=== PATIENT | male | born 1945 | race Caucasian/White ===

== ENCOUNTER → 2020-09-04 08:05 | Outpatient (BNVA) | payer OTHER, SELFPAY | PROVIDERS: Family Provider Emergency Medicine Emergency Medical Services; Referring Provider Emergency Medicine Emergency Medical Services; Visit Provider Specialist | DX: M19.042 Primary osteoarthritis, left hand (principal) | CPT/HCPCS: 73130 ==

== ENCOUNTER → 2020-09-19 15:04 | Outpatient (BNVA) | payer OTHER, SELFPAY | PROVIDERS: Family Provider Emergency Medicine Emergency Medical Services; Visit Provider Specialist | DX: Z20.822 Contact with and (suspected) exposure to COVID-19 (principal); Z11.52 Encounter for screening for COVID-19 | CPT/HCPCS: 87635 ==

== ENCOUNTER 2020-09-23 09:46 | Day surgery (SDC) | payer OTHER, SELFPAY ==
[2020-09-22 17:27] VITALS: BMI 25.8
[2020-09-23] VITALS (9 sets, daily range): BP systolic 80–141; BP diastolic 55–74; PULSE 59–77; RESP 12–18; TEMP 35.8–36.7; O2SAT 94–100
--- NOTE | 2020-09-23 10:08 | W.PM.OPSUD ---
Surgery/Procedure H&P Update DATE OF PROCEDURE: September 23, 2020 DATE H&P PERFORMED: 09/04/20 H&P UPDATE INFORMATION: I have reviewed H&P completed within last 30 days, I have examined patient prior to procedure, No changes to prior documentation and H&P is in [facility] EMR on date indicated PREOP DIAGNOSIS: Left ring finger triggering PLANNED PROCEDURE: Operation Date: 09/23/20 11:45 Proposed Procedures p left ring finger trigger finger release 92316 m65.30(Left) - Katarina Ramires MD Related Problem List Diagnoses (1) Acquired trigger finger of left ring finger:
[2020-09-23] MEDS: CELEcoxib 200 mg Capsule 400 MG PO (10:17)
[2020-09-23] MEDS: sodium chloride 0.9% 1,000 ML 30 ML IV (10:19)
[2020-09-23] MEDS: acetaminophen 1,000 MG/100 ML PIGGYBACK 400 MG IV (10:20)
--- NOTE | 2020-09-23 10:32 | ANES.PREANE2 ---
Pre-Anesthetic Assessment Pre-Anesthetic Assessment: Height/Weight: Height 1.68 m Weight 72.575 kg Temp Pulse Resp BP Pulse Ox 98.1 F 77 18 141/74 95 09/23/20 09:56 09/23/20 09:56 09/23/20 09:56 09/23/20 09:56 09/23/20 09:56 Preop Diagnosis: Left ring finger triggering Proposed Procedure: Operation Date: 09/23/20 11:45 Proposed Procedures p left ring finger trigger finger release 03307 m65.30(Left) - Katarina Ramires MD Was Beta Alexx taken within 24 hours: N/A Was Clonidine taken within 24 hours: N/A Last intake: Intake Last Liquid Date 09/22/20 Last Solid Date 09/22/20 Social: Social History: Tobacco (h/o smoking) and No alcohol Exam: Pre-Anes Outpt Exam: alert, oriented x 3 and regular rate & rhythm Airway: Submandibular: WNL Cervical ROM: WNL MP: 2 Dentition: False Pulmonary: Pulmonary: COPD CV/HEM: Comments: Lymphoma Anesthetic Plan: ASA status: 3 Anesthesia: MAC and Regional (specify below) (Fina prestonk) Risk of > 500 ml blood loss (7ml/kg in children): No Meds/Allergies Current Medications: Current Medications Generic Name Dose Route Start Last Admin Trade Name Freq PRN Reason Stop Dose Admin Sodium Chloride 1,000 mls @ 30 ml s/hr 09/23/20 10:00 09/23/20 10:19 Sodium Chloride 0.9% IV 09/24/20 09:59 30 mls/hr .Q24H CHARITO Administration PFSH Anesthesia PFSH: Social History Smoking and tobacco status: former smoker Data Anesthesia Cardiac Studies: No Data to Display
--- NOTE | 2020-09-23 12:29 | PM.OP ---
Operative Report Date of procedure: September 23, 2020 Pre-op Diagnosis: Left ring finger triggering Post-op diagnosis: same Procedure Done: Release left ring finger triggering Specimens removed/disposition: None Pathology: none sent Surgeon: Katarina Ramires Anesthesia: General (LMA) Estimated blood loss (mL): 0 Tourniquet time (min): 39 Tourniquet time: At 250 mmHg IV fluids (mL): 700 Urine output (mL): 0 Urine output: No Marte Complications: None Condition: stable Disposition: PACU (To same-day surgery for discharge to home) Brief History: This 75-year-old gentleman presented with complaints of triggering of his left ring finger. He wished to have release after discussion of treatment options. Risks and complications were discussed with him. Consents were signed preoperatively. Procedure: Patient was brought to the operating theater. He was placed on the operating room table. A Fina block was attempted, but secondary to poor IV access, he was transitioned to a general anesthetic per LMA. Patient tolerated it well. 2 g of Ancef was administered preoperatively. A tourniquet was placed high on the arm and was elevated for the [place] block, and it was maintained elevated as general anesthetic was administered. This followed exsanguination of the arm. Tourniquet time was 39 minutes. Surgical pause was performed prior to commencement of the surgical procedure. At the time of the surgical pause we identified the site and side of surgery. We also identified the patient's identity and appropriate administration of IV antibiotics. Following the surgical pause, an incision was made along the distal palmar crease beneath the ring finger. Dissection continued through the skin to the subcutaneous tissues using a scalpel. Blunt dissection was then utilized to spread soft tissues and allow access to the A1 mariana. It was then incised longitudinally and sharply using a knife. This was accomplished without difficulty and atraumatically. Once the A1 mariana was released, tendons were brought up out of the wound and evaluated. There were no gross masses on the tendons. Tendons were returned to normal position. We then irrigated the wound and subsequently closed it with 3-0 nylon with an interrupted mattress type suture. Following closure of the wound, the wound was injected with bupivacaine plain into the subcutaneous tissues as a local anesthetic. Sterile dressing was then placed consisting of OpSite, fluffed fluffs, sterile soft roll, and an Tod wrap. The patient was returned to recovery in satisfactory condition. He will be discharged home to follow-up with me in the office. There were no complications and no specimens. Associated Problem List Diagnoses (1) Acquired trigger finger of left ring finger:
--- NOTE | 2020-09-23 17:15 | ANE.PACU2 ---
Inpatient post-anesthesia follow up: Airway intact: Yes Vital signs: Temperature 96.6 F Pulse Rate 59 Respiratory Rate 18 Blood Pressure 100/55 Pulse Oximetry 94 Oxygen Delivery Me thod Room Air Oxygen Flow Rate 6 Fraction of Inspir ed Oxygen Hydration adequate: Yes Nausea and vomiting: No Pain level: 1 Mental status: Baseline
== END 2020-09-23 12:56 | disposition home or self-care (01) ==
PROVIDERS: Visit Provider Specialist
PROC: (CPT 26055; principal; 2020-09-23 11:35)
DX: M65.342 Trigger finger, left ring finger (principal); J44.9 Chronic obstructive pulmonary disease, unspecified; Z87.891 Personal history of nicotine dependence
CPT/HCPCS: 26055; 81025; 96365; J0690; J1170; J2250; J2370; J2704; J3490; J7030; T1015-U1

== ENCOUNTER 2021-10-22 08:48 | Oncology outpatient (recurring) (ONCR) | payer OTHER, SELFPAY | END 2021-11-03 23:59 | disposition home or self-care (01) | PROVIDERS: PCP Emergency Medicine Emergency Medical Services; Visit Provider Internal Medicine Hematology & Oncology | DX: C82.10 Follicular lymphoma grade II, unspecified site (principal); K83.1 Obstruction of bile duct; R53.1 Weakness; R53.83 Other fatigue; Z92.21 Personal history of antineoplastic chemotherapy; Z92.3 Personal history of irradiation | CPT/HCPCS: 96523; 99204; 99999 ==

== ENCOUNTER 2021-11-24 13:48 | Oncology outpatient (recurring) (ONCR) | payer OTHER, SELFPAY | END 2021-12-03 23:59 | disposition home or self-care (01) | PROVIDERS: PCP Emergency Medicine Emergency Medical Services; Visit Provider Internal Medicine Hematology & Oncology | DX: Z45.2 Encounter for adjustment and management of vascular access device (principal) | CPT/HCPCS: 96523 ==

== ENCOUNTER 2022-03-29 08:14 | Oncology outpatient (recurring) (ONCR) | payer OTHER, SELFPAY ==
[2022-03-29] MEDS: iohexol 350 mg/mL 100 mL Btl PO (09:45)
[2022-03-29 10:05] LABS: Basophils # 0.1 10^3/uL (0.0-0.1); Basophils % 0.5 %; Eosinophils # 0.4 10^3/uL (0.0-0.8); Hemoglobin 11.8 g/dL (11.7-16.6); Lymphocytes # 2.4 10^3/uL (0.8-4.8); Lymphocytes % 23.7 %; Mean Corpuscular HGB Conc 31.9 g/dL (30.0-36.0); Mean Corpuscular Volume 94.1 fl (80-94); Mean Platelet Volume 9.2 fL (7.4-10.4); Monocytes # 0.9 10^3/uL (0.2-0.9); Monocytes % 9.3 %; Neutrophils # 6.28 10^3/uL (1.8-7.7); Nucleated Red Blood Cells % 0 %; Platelet Count 272 10^3/cmm (130-400); Red Blood Count 3.93 10^6/uL (4.1-5.3); Red Cell Distribution Width 15.2 % (12.1-15.1); White Blood Count 10.1 10^3/uL (4.0-10.0)
[2022-03-29 10:36] LABS: Alanine Aminotransferase 13 U/L (0-41); Albumin Level 3.9 g/dL (3.5-5.2); Alkaline Phosphatase 143 U/L (40-130); Anion Gap 15.5 (5-19); Aspartate Amino Transferase 22 U/L (0-40); Blood Urea Nitrogen 14 mg/dL (8-23); Calcium 9.4 mg/dL (8.5-10.5); Carbon Dioxide 28 mmol/L (22-29); Chloride 101 mmol/L (98-107); Globulin 3.1 g/dL (1.3-4.6); Glucose 94 mg/dL (65-115); Lactate Dehydrogenase 381 U/L (135-225); Osmolality Calculated 290 mOsm/kg (285-295); Potassium 4.5 mmol/L (3.5-5.1); Sodium 140 mmol/L (136-145); Total Bilirubin 0.3 mg/dL (0.15-1.2)
[2022-03-29] MEDS: iohexol 350 mg/mL 100 mL Btl IV (11:16)
--- NOTE | 2022-03-29 12:00 | CT_ITS ---
WS: [id number] CT CHEST, ABDOMEN AND PELVIS WITH CONTRAST HISTORY: Lymphoma. TECHNIQUE: Contiguous 5 mm axial imaging performed through the chest, abdomen and pelvis with IV cont rast, oral contrast has been provided. Coronal and sagittal reformats chest. Coronal and sagittal ref ormats through the abdomen and pelvis. All CT scans at [facility] use at least one of these d ose optimization techniques: automated exposure control; mA and/or kV adjustment per patient size (in cludes targeted exams where dose is matched to clinical indication); or iterative reconstruction. CONTRAST: Omnipaque 350; 95 mL IV. DLP: 1618.55 mGy.cm COMPARISON: PET/CT 10/30/[address]: Lung volumes are slightly decreased. Subsegmental atelectasis at the LEFT lung base with sl ight elevation of the LEFT hemidiaphragm. There is mild peripheral interstitial thickening. No nodule s or mass. Mild atherosclerosis aorta with no aneurysm. Normal size pulmonary artery. Heart size is n ormal. No mediastinal or hilar adenopathy. Largest lymph node at the RIGHT hilum measures 9 mm. Small hiatal hernia. Mild straightening of the normal thoracic kyphosis. Minimal loss of height of T11. Nu merous rib deformities on the RIGHT from prior trauma with healing. Suspect prior fracture in the man ubrium with healing also. Abdomen CT: Liver and spleen are negative. No portal vein thrombus. Gallbladder is not identified and may be contracted or surgically absent. Pancreas and adrenal glands are negative. No renal obstructi on. Moderate atherosclerotic plaque abdominal aorta. There is no aneurysm. Well-distended stomach. No small bowel obstruction. Marked fecal retention within the distal colon. A ppendix is normal. Mild soft tissue thickening centered in the central mesentery. This was the site of previously noted enlarged lymph nodes. Very similar to the prior PET/CT from 2019. No definite recurrence. This may be residual treated disease. No retroperitoneal or additional mesenteric lymph nodes. Pelvic CT: Nondistended bladder with mild diffuse bladder wall thickening. No free fluid or adenopath y in the pelvis. Mild soft tissue thickening along the RIGHT inguinal canal may be some fluid. No nancy nge since 2019. Straightening of the normal lumbar lordosis. Moderate degenerative disc disease. Prior RIGHT hip arth roplasty. CT/CT chest abd pel w con* IMPRESSION: 1. No evidence for recurrent lymphadenopathy throughout the chest, abdomen or pelvis. 2. Residual very minimal soft tissue thickening in the central mesentery at th e site of prior enlarged lymph nodes. This may be treated disease. No obvious p rogression since 2019. 3. Marked fecal retention distal colon. 4. Advanced degenerative changes in thoracic and lumbar spine
== END 2022-04-05 23:59 | disposition home or self-care (01) ==
LOC: ONCMED 08:16 → RAD 09:29 → ONCMED 04-05 13:52
PROVIDERS: PCP Emergency Medicine Emergency Medical Services; Visit Provider Internal Medicine Hematology & Oncology
DX: C85.90 Non-Hodgkin lymphoma, unspecified, unspecified site (principal)
CPT/HCPCS: 71260; 74177; 80053; 83615; 85025

== ENCOUNTER 2022-04-14 12:37 | Oncology outpatient (recurring) (ONCR) | payer OTHER, SELFPAY ==
[2022-04-14 13:06] LABS: Basophils % 0.4 %; Eosinophils # 0.5 10^3/uL (0.0-0.8); Eosinophils % 4.9 %; Hematocrit 34.8 % (42.0-52.0); Hemoglobin 11.2 g/dL (11.7-16.6); Lymphocytes # 2.6 10^3/uL (0.8-4.8); Lymphocytes % 23.7 %; Mean Corpuscular HGB Conc 32.2 g/dL (30.0-36.0); Mean Corpuscular Hemoglobin 29.6 pg (28.0-34.0); Mean Corpuscular Volume 91.8 fl (80-94); Monocytes # 0.9 10^3/uL (0.2-0.9); Neutrophils # 6.72 10^3/uL (1.8-7.7); Neutrophils % 62.5 %; Nucleated Red Blood Cells % 0 %; Platelet Count 299 10^3/cmm (130-400); Red Blood Count 3.79 10^6/uL (4.1-5.3); Red Cell Distribution Width 15.2 % (12.1-15.1); White Blood Count 10.8 10^3/uL (4.0-10.0)
[2022-04-14 13:29] LABS: Alanine Aminotransferase 12 U/L (0-41); Albumin Level 3.5 g/dL (3.5-5.2); Alkaline Phosphatase 112 U/L (40-130); Anion Gap 12.8 (5-19); Aspartate Amino Transferase 15 U/L (0-40); Blood Urea Nitrogen 16 mg/dL (8-23); Calcium 8.9 mg/dL (8.5-10.5); Carbon Dioxide 29 mmol/L (22-29); Chloride 98 mmol/L (98-107); Glucose 159 mg/dL (65-115); Lactate Dehydrogenase 206 U/L (135-225); Osmolality Calculated 287 mOsm/kg (285-295); Potassium 3.8 mmol/L (3.5-5.1); Sodium 136 mmol/L (136-145); Total Bilirubin 0.2 mg/dL (0.15-1.2); Total Protein 6.5 g/dL (6.6-8.7)
== END 2022-05-05 23:59 | disposition home or self-care (01) ==
PROVIDERS: PCP Emergency Medicine Emergency Medical Services; Visit Provider Internal Medicine Hematology & Oncology
DX: C82.49 Follicular lymphoma grade IIIb, extranodal and solid organ sites (principal); K83.1 Obstruction of bile duct; Z92.21 Personal history of antineoplastic chemotherapy; Z92.3 Personal history of irradiation; Z87.891 Personal history of nicotine dependence
CPT/HCPCS: 36591; 80053; 83615; 85025; 99214

== ENCOUNTER 2022-06-09 10:48 | Oncology outpatient (recurring) (ONCR) | payer OTHER, SELFPAY | END 2022-07-06 23:59 | disposition home or self-care (01) | PROVIDERS: PCP Emergency Medicine Emergency Medical Services; Visit Provider Internal Medicine Hematology & Oncology | DX: Z45.2 Encounter for adjustment and management of vascular access device (principal); Z95.828 Presence of other vascular implants and grafts | CPT/HCPCS: 96523 ==

== ENCOUNTER 2022-09-02 12:40 | Oncology outpatient (recurring) (ONCR) | payer OTHER, SELFPAY ==
[2022-09-02 13:13] VITALS: BP 103/63; PULSE 88; RESP 18; TEMP 37.1; O2SAT 97
== END 2022-09-03 23:59 | disposition home or self-care (01) ==
LOC: ONCMED 12:41
PROVIDERS: PCP Emergency Medicine Emergency Medical Services; Visit Provider Internal Medicine Hematology & Oncology
DX: Z45.2 Encounter for adjustment and management of vascular access device; Z95.828 Presence of other vascular implants and grafts
CPT/HCPCS: 96523

== ENCOUNTER 2022-10-14 12:08 | Oncology outpatient (recurring) (ONCR) | payer OTHER, SELFPAY ==
[2022-10-14 13:16] LABS: Basophils % 0.4 %; Eosinophils # 0.3 10^3/uL (0.0-0.8); Eosinophils % 3.4 %; Hematocrit 35.2 % (42.0-52.0); Hemoglobin 11.3 g/dL (11.7-16.6); Mean Corpuscular HGB Conc 32.1 g/dL (30.0-36.0); Mean Corpuscular Hemoglobin 29.7 pg (28.0-34.0); Mean Corpuscular Volume 92.4 fl (80-94); Mean Platelet Volume 9.1 fL (7.4-10.4); Monocytes # 0.8 10^3/uL (0.2-0.9); Monocytes % 8.3 %; Neutrophils # 6.08 10^3/uL (1.8-7.7); Neutrophils % 65.5 %; Nucleated Red Blood Cells % 0 %; Platelet Count 249 10^3/cmm (130-400); Red Blood Count 3.81 10^6/uL (4.1-5.3); Red Cell Distribution Width 14.8 % (12.1-15.1); White Blood Count 9.3 10^3/uL (4.0-10.0)
[2022-10-14 13:42] LABS: Alanine Aminotransferase 24 U/L (0-41); Albumin Level 3.8 g/dL (3.5-5.2); Alkaline Phosphatase 81 U/L (40-130); Anion Gap 12.1 (5-19); Aspartate Amino Transferase 21 U/L (0-40); Blood Urea Nitrogen 16 mg/dL (8-23); Calcium 8.7 mg/dL (8.5-10.5); Carbon Dioxide 28 mmol/L (22-29); Chloride 101 mmol/L (98-107); Globulin 2.7 g/dL (1.3-4.6); Glucose 92 mg/dL (65-115); Lactate Dehydrogenase 219 U/L (135-225); Osmolality Calculated 285 mOsm/kg (285-295); Potassium 4.1 mmol/L (3.5-5.1); Sodium 137 mmol/L (136-145); Total Bilirubin 0.2 mg/dL (0.15-1.2); Total Protein 6.5 g/dL (6.6-8.7)
[2022-10-14 14:58] LABS: Ferritin 99 ng/mL (30-400); Iron 46 ug/dL (59-158); Percent Saturation 17.5 % (20-50); Total Iron Binding Capacity 262 mcg/dl; Unsaturated Iron Binding 216 ug/dL (112-347)
[2022-10-14 15:13] LABS: Vitamin B12 485 pg/mL (232-1245)
== END 2022-11-03 23:59 | disposition home or self-care (01) ==
PROVIDERS: PCP Emergency Medicine Emergency Medical Services; Visit Provider Internal Medicine Hematology & Oncology
DX: C82.49 Follicular lymphoma grade IIIb, extranodal and solid organ sites (principal); K83.1 Obstruction of bile duct; Z92.21 Personal history of antineoplastic chemotherapy; Z92.3 Personal history of irradiation; Z87.891 Personal history of nicotine dependence; D64.9 Anemia, unspecified; Z95.828 Presence of other vascular implants and grafts
CPT/HCPCS: 36591; 80053; 82607; 82728; 83540; 83550; 83615; 85025; 99214

== ENCOUNTER → 2022-10-21 10:30 | Outpatient (BNVA) | payer OTHER, SELFPAY | PROVIDERS: PCP Emergency Medicine Emergency Medical Services; Visit Provider Internal Medicine Cardiovascular Disease | DX: M79.89 Other specified soft tissue disorders (principal); I10 Essential (primary) hypertension; I73.9 Peripheral vascular disease, unspecified; Z87.891 Personal history of nicotine dependence | CPT/HCPCS: 93005; 99204 ==

== ENCOUNTER 2022-11-16 09:47 | Outpatient (CLI) | payer OTHER, SELFPAY ==
--- NOTE | 2022-11-16 10:00 | USCV_ITS ---
Evelio Irwin Age: 77 Gender: M : 1945 Exam Date: 11/16/2022 10:17 Ordering Phys: Kolby Khan MD ([email or web address]) Technologist: Exam Location: [facility] Indication: lt leg pain PROCEDURES: Venous duplex imaging was performed in only the left lower extremity. The following venous structures were evaluated: common femoral vein, profunda vein, proximal portion of the greater saphenous vein, superficial femoral vein, and the popliteal vein. In addition, the posterior tibial and peroneal trunk were evaluated. FINDINGS: Normal 2-D Doppler and augmentation and compressibility throughout the lower extremity venous structures. Additional imaging through the proximal calf veins also reveals no thrombus. Limited evaluation of the greater saphenous vein is patent with no thrombus. CONCLUSIONS No DVT left lower extremity. Dr. Tootie Freeman DO (Electronically Signed) Final Date: 17 November 2022 07:35 S
== END 2022-11-16 09:48 | disposition home or self-care (01) ==
LOC: RAD 09:48
PROVIDERS: PCP Emergency Medicine Emergency Medical Services; Visit Provider Internal Medicine Cardiovascular Disease
DX: M79.89 Other specified soft tissue disorders (principal)
CPT/HCPCS: 93005; 93971; 99204

== ENCOUNTER 2022-11-18 14:08 | Oncology outpatient (recurring) (ONCR) | payer OTHER, SELFPAY | END 2022-12-03 23:59 | disposition home or self-care (01) | LOC: ONCMED 14:09 | PROVIDERS: PCP Emergency Medicine Emergency Medical Services; Visit Provider Internal Medicine Hematology & Oncology | DX: Z45.2 Encounter for adjustment and management of vascular access device (principal) | CPT/HCPCS: 96523; J1642 ==

== ENCOUNTER → 2022-12-13 09:34 | Outpatient (BNVA) | payer OTHER, SELFPAY | PROVIDERS: PCP Emergency Medicine Emergency Medical Services; Visit Provider Nurse Practitioner Family | DX: I10 Essential (primary) hypertension (principal); I73.9 Peripheral vascular disease, unspecified; Z87.891 Personal history of nicotine dependence | CPT/HCPCS: 99214 ==

== ENCOUNTER 2023-01-31 15:26 | Oncology outpatient (recurring) (ONCR) | payer OTHER, SELFPAY ==
--- OUTSIDE RECORDS SUMMARY | 2023-01-31 15:25 | XMS_ITS | Patient Health Record ---
Author Name Unknown Organization [facility] Address [address] [place] [address] Care Team Providers Care Invisible Braces Orthodontist Name Role Phone Chaitanya Ban Primary Care Provider Unavailabl e Crow Michel Unavailable [phone] [place], [place] Unavailable Unavailable ALLERGIES No Known Allergies RESULTS Component Value Reference Range Notes CBC Reflex Man Diff 66923, 8 5007 Reviewed date:03/01/2022 01:02:07 PM Interpretation: Performing Lab: Notes/Report: Instr WBC WBC RBC Hgb Hct MCV MCH MCHC Platelet RDW-SD RDW-CV MPV Review X Comprehensive Metabolic Pane l 80216 Reviewed date:03/01/2022 01:02:14 PM Interpretation: Performing Lab: Notes/Report: Sodium Potassium Chloride CO2 Glucose Serum BUN Creat Anion Gap BUN/Creat Ratio Total Protein Albumin Calcium Alk Phos Globulin Alb/Glob AST/SGOT Bili Total ALT/SGPT X GFR Osmo Serum,Measured REASON FOR REFERRAL No Information MEDICATIONS Medication SIG (Take, Route, Frequency, Duration) Notes Start Date End Date Status Mirapex 1 MG 1 tablet Orally bid Active Albuterol Sulfate HFA 108 (90 Base) MCG/ACT 2 puffs as needed Inhalation every 6 hrs rare PRN Active Albuterol Sulfate (2.5 MG/3ML) 0.083% 3 ml as needed Inhalation QID as needed for SOB/Wheeze rare PRN Active IMMUNIZATIONS Vaccine Route Administration Date Status Comme nts Influenza (whole), CPT 98606 Inactive Unknown 03/07/2017 Administered Influenza (whole), CPT 22594 Inactive Unknown 04/11/2018 Administered Influenza, high dose seasonal Unknown 11/07/2019 Refuse d Influenza, seasonal, injecta ble, preservative free, 3 yrs and above Unknown 07/20/2019 Administered Pneumococcal polysaccharide PPV23 Unknown 07/20/2018 Ad ministered Pneumovax 23 Unknown 03/07/2017 Administered SOCIAL HISTORY Tobacco Use: Social History Observation Description Date Details (start date - stop date) Former Smoker NA - NA Sex Assigned At : Social History Observation Description Sex Assigned At Unknown Tobacco Use/Smoking Question Answer Notes Are you a former smoker How long has it been since you last smoked? > 10 years Alcohol Screen (Audit-C) Question Answer Notes Did you have a drink containing alcohol in the p ast year? No Points 0 Interpretation Negative PHQ-9 Question Answer Notes Little interest or pleasure in doing things Not at all Feeling down, depressed, or hopeless Not at all Trouble falling or staying asleep, or sleeping t oo much Not at all Feeling tired or having little energy Not at all Poor appetite or overeating Not at all Feeling bad about yourself, or that you are a failure, or have let yourself or your family down Not at all Trouble concentrating on thi ngs, such as reading the newspaper or watching television Not at all Moving or speaking so slowly that other people could have noticed. Or the opposite ? 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) Active confirmed 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 (87149007) Problem Chronic obstructive pulmonary disease, unspecified (J44.9) Active confirmed Chronic obstructive pulmonary disease (18538059) Problem Lymphoma, non-Hodgkin's (C85.90) Active confirmed Non-Hodgkin lymphoma (152367105) Problem Chronic cough (R05) Active confirmed 78916878 Problem Abnormal PFT (R94.2) Active confirmed 533566941 Problem History of follicular lymphoma (Z85.72) Active confirmed Problem Follicular lymphoma of spleen, 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 confirmed 565016575 Problem 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) Active confirmed 101554676 Encounters Encounter Location Date Provider Diagnosis [address] [facility] [place] [address] 03/01/2022 Crow Michel PLAN OF TREATMENT Pending Test Test Name Order Date PETCT 10/30/2019 Comprehensive Metabolic Panel [id number] 090 06/2019 CBC Reflex Man Diff 50253, 32809 020 Port Flush 11/18/2020 Future Test Test Name Order Date Port Flush 10/26/2019 Comprehensive Metabolic Panel 06096 090 08/2019 CBC Reflex Man Diff 07163, 70046 020 Comprehensive Metabolic Panel 53815 11/04 CBC Reflex Man Diff 49247, 90915 021 Insurance Providers Payer Name Payer Address Payer Phone Subscriber Number Group Number Insured Name Patient Relationship to Insured Coverage Start Date Coverage End Date [employer] [address] [place] [phone] [id number] Irwin Fraser Self - patient is the insured MEDICAL (GENERAL) HISTORY Medical History History ICD Code Problem:Allergic rhinitis (disorder) , S tatus :: Active Problem:Arthritis (disorder) , Status :: Active Problem:Cataract (disorder) , Status :: Active Problem:Chronic cough (finding) , Status :: Active Problem:Follicular non-Hodgkin's lymphom a (disorder) , Status :: Active Problem:Imaging of thorax abnormal (find ing) , Status :: Active Problem:Immunoglobulin deficiency (disor camilla) , Status :: Active Problem:Paraseptal emphysema (disorder) , Status :: Active Problem:Pulmonary emphysema (disorder) , Status :: Active 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) , Status :: Active Problem:Arthritis (disorder) , Status :: Active Problem:Cataract (disorder) , Status :: Active Problem:Dehydration (disorder) , Status :: Active Problem:Follicular non-Hodgkin's lymphom a (disorder) , Status :: Active Problem:Hypocalcemia (disorder) , Status :: Active Problem:Hypogammaglobulinemia (finding) , Status :: Active Problem:Jaundice (finding) , Status :: A ctive Problem:Malignant lymphoma (disorder) , Status :: Active Problem:Polyarthropathy (disorder) , Sta tus :: Active Problem:Pulmonary emphysema (disorder) , Status :: Active measles pneumonia anemia hemorrhoids bronchitis cataracts Surgical History Surgery Date(Month/Year) right hip replacement Hospitalization History Reason Date(Month/Year) surgical pneumonia 07/2019
[2023-01-31 15:27] VITALS: BP 121/72; PULSE 87; RESP 18; TEMP 37; O2SAT 94
== END 2023-02-03 23:59 | disposition home or self-care (01) ==
PROVIDERS: PCP Emergency Medicine Emergency Medical Services; Visit Provider Internal Medicine Hematology & Oncology
DX: Z45.2 Encounter for adjustment and management of vascular access device (principal)
CPT/HCPCS: 96523; J1642

== ENCOUNTER 2023-03-04 10:40 | Oncology outpatient (recurring) (ONCR) | payer OTHER, SELFPAY ==
[2023-03-04 10:46] VITALS: BP 145/76; PULSE 88; RESP 17; TEMP 36.1; O2SAT 95
== END 2023-03-05 23:59 | disposition home or self-care (01) ==
PROVIDERS: PCP Emergency Medicine Emergency Medical Services; Visit Provider Internal Medicine Hematology & Oncology
DX: Z45.2 Encounter for adjustment and management of vascular access device (principal)
CPT/HCPCS: 96523; J1642

== ENCOUNTER 2023-04-05 14:31 | Oncology outpatient (recurring) (ONCR) | payer OTHER, SELFPAY ==
--- OUTSIDE RECORDS SUMMARY | 2023-04-05 14:33 | XMS_ITS | Patient Health Record ---
Author Name Unknown Organization [facility] Address [address] [place] [address] Care Team Providers Care Ammonia Box Tender Name Role Phone Ban Tavares Primary Care Provider Neftali Ross Unavailable [phone] [place], [place] Unavailable Unavailable ALLERGIES No Known Allergies REASON FOR REFERRAL Reason Peripheral vascular disease Diagnosis 1 Peripheral vascular disease (I73.9) Referring Provider First Name Ban Referring Provider Last Name Chaitanya Referred Organization [facility] Referred Provider Neftali Berman Referred Address [address],[place],[address],[place] Referred Provider Specialty Cardiology Referral Priority Routine MEDICATIONS Medication SIG (Take, Route, Frequency, Duration) [...] Date Status Comme nts Influenza (whole), CPT 14466 Inactive Unknown 03/07/2017 Administered Influenza (whole), CPT 88344 Inactive Unknown 04/11/2018 Administered Influenza, high dose [...] lymphoma of lymph nodes of multiple sites (79395279) Problem Chronic obstructive pulmonary disease, unspecified (J44.9) Active confirmed Chronic obstructive pulmonary disease (44905184) Problem Lymphoma, non-Hodgkin's (C85.90) Active confirmed Non-Hodgkin lymphoma (989063275) Problem Chronic cough (R05) Active confirmed 57445272 Problem Peripheral vascular disease (I73.9) Active confirmed 191033694 Problem Abnormal PFT (R94.2) Active confirmed 217278584 Problem History of follicular lymphoma (Z85.72) Active confirmed Problem Follicular lymphoma of spleen, 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 confirmed 968096596 Problem 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) Active confirmed 677718817 PLAN OF TREATMENT Pending Test Test Name Order Date PETCT 10/30/2019 Comprehensive Metabolic Panel [id number] 0 06/2019 CBC Reflex Man Diff 88195, 65900 020 Port Flush 11/18/2020 Future Test Test Name Order Date Port Flush 10/26/2019 Comprehensive Metabolic Panel 09730 09/0 08/2019 CBC Reflex Man Diff 85050, 10944 020 Comprehensive Metabolic Panel 94341 11/04 CBC Reflex Man Diff 06297, 94084 021 Next Appt Details Provider Name:Neftali Berman , 06/09/2023 10:45:00 AM, [address] [place] [address], [address], Insurance Providers Payer Name Payer Address Payer Phone Subscriber Number Group Number Insured Name Patient Relationship to Insured Coverage Start Date Coverage End Date [employer] [address] [place] [phone] [id number] Irwin Fraser Self - patient is the [...]
[2023-04-05 14:40] VITALS: BP 134/81; PULSE 64; RESP 18; TEMP 36.6; O2SAT 99
== END 2023-04-05 23:59 | disposition home or self-care (01) ==
LOC: ONCMED 14:31
PROVIDERS: PCP Emergency Medicine Emergency Medical Services; Visit Provider Internal Medicine Hematology & Oncology
DX: Z45.2 Encounter for adjustment and management of vascular access device (principal)
CPT/HCPCS: 36415; J1642

== ENCOUNTER 2023-04-15 09:28 | Outpatient (CLI) | payer OTHER, SELFPAY ==
[2023-04-15] MEDS: iohexol 350 mg/mL 500 mL Btl (per mL) IV (09:46)
[2023-04-15] MEDS: iohexol 350 mg/mL 500 mL Btl (per mL) PO (09:46)
--- NOTE | 2023-04-15 11:00 | CTR_ITS ---
PROCEDURE INFORMATION: Exam: CT Chest With Contrast; Diagnostic Exam date and time: 04/15/2023 11:30 AM Age: 78 years old Clinical indication: Condition or disease; Other: Follow up non hodgkin lymphoma; Additional info: Follow up, to be completed in six months, just prior to next oncology TECHNIQUE: Imaging protocol: Diagnostic computed tomography of the chest with contrast. Radiation optimization: All CT scans at this facility use at least one of these dose optimization techniques: automated exposure control; mA and/or kV adjustment per patient size (includes targeted exams where dose is matched to clinical indication); or iterative reconstruction. Contrast material: OMNI 350; Contrast volume: 95 ml; Contrast route: INTRAVENOUS (IV); REPORTING DATA: Count of CT and Cardiac NM exams in prior 12 months: This patient has received 0 known CTs and 0 known cardiac nuclear medicine studies in the 12 months prior to the current study. COMPARISON: CT chest abdpel w/*[id number] 03/29/2022 11:09 AM RADIATION DOSE METRICS: Total DLP (mGy-cm): 906.86 FINDINGS: Lungs: Mild upper lung predominant emphysematous changes. Mild left basilar subsegmental atelectasis. Mild right dependent atelectasis. No consolidation. No mass. Left lower lobe calcified granuloma. Pleural spaces: Unremarkable. No pneumothorax. No pleural effusion. Heart: Unremarkable. No cardiomegaly. No pericardial effusion. Coronary arteries: Mild coronary artery calcification. Lymph nodes: No suspicious lymphadenopathy. Stable small mediastinal calcification in keeping with sequela of old granulomatous disease. Stable right hilar lymph node measures 9 mm. Vasculature: Mild systemic atherosclerotic calcification without aortic aneurysm. Diaphragm: Stable asymmetric elevation of the left hemidiaphragm. Bones/joints: No acute fracture. No aggressive osteolytic or blastic lesion. Multiple chronic right rib fracture deformities. Degenerative changes along the spine and shoulders. Soft tissues: Unremarkable. PROCEDURE INFORMATION: Exam: CT Abdomen And Pelvis With Contrast Exam date and time: 04/15/2023 11:30 AM Age: 78 years old Clinical indication: Condition or disease; Other: Follow up non hodgkin lymphoma; Additional info: Follow up, to be completed in six months, just prior to next oncology TECHNIQUE: Imaging protocol: Computed tomography of the abdomen and pelvis with contrast. Radiation optimization: All CT scans at this facility use at least one of these dose optimization techniques: automated exposure control; mA and/or kV adjustment per patient size (includes targeted exams where dose is matched to clinical indication); or iterative reconstruction. Contrast material: OMNI 350; Contrast volume: 95 ml; Contrast route: INTRAVENOUS (IV); REPORTING DATA: Count of CT and Cardiac NM exams in prior 12 months: This patient has received 0 known CTs and 0 known cardiac nuclear medicine studies in the 12 months prior to the current study. COMPARISON: CT chest abdpel w/*[id number] 03/29/2022 11:09 AM RADIATION DOSE METRICS: Total DLP (mGy-cm): 906.86 FINDINGS: Liver: Normal. No mass. Gallbladder and bile ducts: Suspect prior cholecystectomy without biliary ductal dilatation. Pancreas: Normal. No ductal dilation. Spleen: Normal. No splenomegaly. Adrenal glands: Normal. No mass. Kidneys and ureters: Normal. No hydronephrosis. Stomach and bowel: Unremarkable. No obstruction. No mucosal thickening. Appendix: Normal. Intraperitoneal space: Unremarkable. No free air. No significant fluid collection. Vasculature: Moderate systemic atherosclerotic calcification without abdominal aortic aneurysm. Lymph nodes: No suspicious lymphadenopathy. Stable subtle jejunal mesenteric graying. Urinary bladder: Unremarkable as visualized. Reproductive: Unremarkable as visualized. Bones/joints: No acute fracture. No aggressive osteolytic or blastic lesion. Chronic right pelvic fractures and total hip arthroplasty. Degenerative changes along the spine. Soft tissues: Small fat containing umbilical hernia. CT/CT chest abdpel w/*[id number] IMPRESSION: No evidence of recurrent disease to the chest. IMPRESSION: 1. No evidence of progressive disease or recurrent lymphadenopathy. 2. Stable subtle mesenteric graying.
[2023-04-15 11:44] LABS: Blood Urea Nitrogen 21 mg/dL (8-23)
== END 2023-04-15 09:29 | disposition home or self-care (01) ==
LOC: RAD 09:28
PROVIDERS: PCP Emergency Medicine Emergency Medical Services; Visit Provider Internal Medicine Medical Oncology
DX: C82.90 Follicular lymphoma, unspecified, unspecified site (principal)
CPT/HCPCS: 71260; 74177; 82565; 84520; Q9967

== ENCOUNTER 2023-04-18 11:55 | Oncology outpatient (recurring) (ONCR) | payer OTHER, SELFPAY ==
[2023-04-18 12:15] VITALS: BP 125/69; PULSE 88; RESP 16; TEMP 36.8; O2SAT 94
[2023-04-18 12:33] LABS: Basophils % 0.3 %; Eosinophils # 0.3 10^3/uL (0.0-0.8); Eosinophils % 2.6 %; Hematocrit 34.4 % (37-53); Lymphocytes % 20.8 %; Mean Corpuscular HGB Conc 33.1 g/dL (30-55); Mean Corpuscular Hemoglobin 30.3 pg (27-33); Mean Corpuscular Volume 91.5 fl (82-101); Mean Platelet Volume 8.8 fL (7.4-10.4); Monocytes # 0.8 10^3/uL (0.2-0.9); Monocytes % 8.6 %; Neutrophils # 6.38 10^3/uL (1.8-7.7); Neutrophils % 67.4 %; Nucleated Red Blood Cells % 0 %; Platelet Count 214 10^3/cmm (157-399); Red Blood Count 3.76 10^6/uL (3.85-5.65); Red Cell Distribution Width 15.9 % (12.1-15.1); White Blood Count 9.48 10^3/uL (3.29-11.43)
[2023-04-18 12:56] LABS: Alanine Aminotransferase 20 U/L (0-41); Albumin Level 3.9 g/dL (3.5-5.2); Alkaline Phosphatase 83 U/L (40-130); Anion Gap 11.4 (5-19); Aspartate Amino Transferase 18 U/L (0-40); Blood Urea Nitrogen 20 mg/dL (8-23); Calcium 9.1 mg/dL (8.5-10.5); Carbon Dioxide 27 mmol/L (22-29); Chloride 101 mmol/L (98-107); Globulin 2.9 g/dL (1.3-4.6); Glucose 92 mg/dL (65-115); Lactate Dehydrogenase 212 U/L (135-225); Osmolality Calculated 282 mOsm/kg (285-295); Potassium 4.4 mmol/L (3.5-5.1); Sodium 135 mmol/L (136-145); Total Bilirubin 0.2 mg/dL (0.15-1.2); Total Protein 6.8 g/dL (6.6-8.7)
== END 2023-05-05 23:59 | disposition home or self-care (01) ==
PROVIDERS: Internal Medicine Medical Oncology; PCP Emergency Medicine Emergency Medical Services; Visit Provider Internal Medicine
DX: Z45.2 Encounter for adjustment and management of vascular access device (principal); C82.90 Follicular lymphoma, unspecified, unspecified site; D64.9 Anemia, unspecified; Z79.899 Other long term (current) drug therapy
CPT/HCPCS: 36591; 80053; 83615; 85025; 99214; J1642

== ENCOUNTER 2023-05-23 13:37 | Oncology outpatient (recurring) (ONCR) | payer OTHER, SELFPAY ==
[2023-05-23 13:58] VITALS: BP 140/84; PULSE 88; RESP 16; TEMP 36.7; O2SAT 96
== END 2023-06-05 23:59 | disposition home or self-care (01) ==
PROVIDERS: PCP Emergency Medicine Emergency Medical Services; Visit Provider Internal Medicine
DX: Z45.2 Encounter for adjustment and management of vascular access device (principal)
CPT/HCPCS: 96523; J1642

== ENCOUNTER 2023-07-21 14:26 | Oncology outpatient (recurring) (ONCR) | payer OTHER, SELFPAY ==
--- OUTSIDE RECORDS SUMMARY | 2023-07-21 14:28 | XMS_ITS | Patient Health Record ---
Author Name Unknown Organization [facility] Address [address] [place] [address] Care Team Providers Care Elevator Starter Name Role Phone Ban Tavares Primary Care Provider Neftali Ross Unavailable [phone] [place], [place] Unavailable Unavailable ALLERGIES No Known Allergies REASON FOR REFERRAL Reason Peripheral vascular disease Diagnosis 1 Peripheral vascular disease (I73.9) Referring Provider First Name Ban Referring Provider Last Name Chaitanya Referred Organization [facility] Referred Provider Neftali Berman Referred Address [address],[place],[address],[place] Referred Provider Specialty Cardiology Referral Priority Routine [...] Date Status Comme nts Influenza (whole), CPT 52866 Inactive Unknown 03/07/2017 Administered Influenza (whole), CPT 95937 Inactive Unknown 04/11/2018 Administered Influenza, high dose [...] lymphoma of lymph nodes of multiple sites (46869241) Problem Chronic obstructive pulmonary disease, unspecified (J44.9) Active confirmed Chronic obstructive pulmonary disease (00386380) Problem Lymphoma, non-Hodgkin's (C85.90) Active confirmed Non-Hodgkin lymphoma (556519510) Problem Chronic cough (R05) Active confirmed 03005017 Problem Peripheral vascular disease (I73.9) Active confirmed 238142652 Problem Abnormal PFT (R94.2) Active confirmed 011848957 Problem History of follicular lymphoma (Z85.72) Active confirmed Problem Follicular lymphoma of spleen, 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 confirmed 413770628 Problem 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) Active confirmed 649258117 Encounters Encounter Location Date Provider Diagnosis [facility] [address] [place] [address] 06/09/2023 Neftali Berman PLAN OF TREATMENT Pending Test Test Name Order Date PETCT 10/30/2019 Comprehensive Metabolic Panel 18161 06/2019 CBC Reflex Man Diff 69119, 25936 020 Port Flush 11/18/2020 Future Test Test Name Order Date Port Flush 10/26/2019 Comprehensive Metabolic Panel 76131 08/2019 CBC Reflex Man Diff 12546, 82692 020 Comprehensive Metabolic Panel 94937 11/04 CBC Reflex Man Diff 41703, 48604 021 Insurance Providers Payer Name Payer Address Payer Phone Subscriber Number Group Number Insured Name Patient Relationship to Insured Coverage Start Date Coverage End Date [employer]UM [address] [place] [address] [id number] Evelio Irwin Self - patient is the insured MEDICAL [...]
== END 2023-08-04 23:59 | disposition home or self-care (01) ==
PROVIDERS: PCP Emergency Medicine Emergency Medical Services; Visit Provider Internal Medicine
DX: Z45.2 Encounter for adjustment and management of vascular access device (principal)
CPT/HCPCS: 96523; J1642

== ENCOUNTER 2023-09-07 09:31 | Oncology outpatient (recurring) (ONCR) | payer OTHER, SELFPAY | END 2023-10-04 23:59 | disposition home or self-care (01) | LOC: ONCMED 09:31 | PROVIDERS: PCP Emergency Medicine Emergency Medical Services; Visit Provider Internal Medicine | DX: Z95.828 Presence of other vascular implants and grafts (principal); I73.9 Peripheral vascular disease, unspecified; I10 Essential (primary) hypertension; J44.1 Chronic obstructive pulmonary disease with (acute) exacerbation; Z86.718 Personal history of other venous thrombosis and embolism; M79.89 Other specified soft tissue disorders; Z87.891 Personal history of nicotine dependence | CPT/HCPCS: 96523; 99214 ==

== ENCOUNTER 2023-11-16 12:42 | Oncology outpatient (recurring) (ONCR) | payer OTHER, SELFPAY ==
[2023-11-16 13:34] LABS: Basophils # 0.1 10^3/uL (0.0-0.1); Basophils % 0.7 %; Eosinophils # 0.3 10^3/uL (0.0-0.8); Eosinophils % 3.9 %; Lymphocytes % 26.2 %; Mean Corpuscular HGB Conc 33.1 g/dL (30-55); Mean Corpuscular Hemoglobin 30.1 pg (27-33); Mean Corpuscular Volume 91.1 fl (82-101); Mean Platelet Volume 9.3 fL (7.4-10.4); Monocytes # 0.7 10^3/uL (0.2-0.9); Monocytes % 9.1 %; Neutrophils # 4.44 10^3/uL (1.8-7.7); Neutrophils % 59.6 %; Nucleated Red Blood Cells % 0 %; Platelet Count 195 10^3/cmm (157-399); Red Blood Count 3.95 10^6/uL (3.85-5.65); Red Cell Distribution Width 15.4 % (12.1-15.1); White Blood Count 7.45 10^3/uL (3.29-11.43)
[2023-11-16 13:51] LABS: Alanine Aminotransferase 21 U/L (0-41); Albumin Level 3.9 g/dL (3.5-5.2); Alkaline Phosphatase 107 U/L (40-130); Anion Gap 13.2 (5-19); Aspartate Amino Transferase 22 U/L (0-40); Blood Urea Nitrogen 16 mg/dL (8-23); Carbon Dioxide 28 mmol/L (22-29); Chloride 101 mmol/L (98-107); Globulin 2.6 g/dL (1.3-4.6); Glucose 106 mg/dL (65-115); Lactate Dehydrogenase 264 U/L (135-225); Osmolality Calculated 288 mOsm/kg (285-295); Potassium 4.2 mmol/L (3.5-5.1); Sodium 138 mmol/L (136-145); Total Bilirubin 0.3 mg/dL (0.15-1.2); Total Protein 6.5 g/dL (6.6-8.7)
== END 2023-12-04 23:59 | disposition home or self-care (01) ==
PROVIDERS: PCP Emergency Medicine Emergency Medical Services; Visit Provider Internal Medicine
DX: C82.90 Follicular lymphoma, unspecified, unspecified site (principal); C85.90 Non-Hodgkin lymphoma, unspecified, unspecified site; D64.9 Anemia, unspecified
CPT/HCPCS: 36591; 80053; 83615; 85025; 99214

== ENCOUNTER 2023-12-14 14:10 | Oncology outpatient (recurring) (ONCR) | payer OTHER, SELFPAY ==
--- OUTSIDE RECORDS SUMMARY | 2023-12-14 14:13 | XMS_ITS | Patient Health Record ---
Author Name Unknown Organization [facility] Address [address] [place] [address] Care Team Providers Care Senior Java Web Application Developer Name Role Phone Ban Tavares APRN Primary Care Provider Unavail able Neftali Berman Unavailable [phone] [place] Unavailable Unavailable Allergies No Known Allergies Reason For Referral Reason Peripheral vascular disease Diagnosis 1 Peripheral vascular disease (I73.9) Referring Provider First Name Ban Referring Provider Last Name Chaitanya Referring Provider Speciality Nurse Prac titioner [facility] Referred Provider Neftali Berman Referred Address [address],[place],[address],[place] Referred Provider Specialty Cardiology Referral Priority Routine Medications Medication SIG (Take, Route, Frequency, Duration) Notes Start Date End Date Status Mirapex 1 MG 1 tablet Orally bid Active Albuterol Sulfate HFA 108 (90 Base) MCG/ACT 2 puffs as needed Inhalation every 6 hrs rare PRN Active Albuterol Sulfate (2.5 MG/3ML) 0.083% 3 ml as needed Inhalation QID as needed for SOB/Wheeze rare PRN Active Immunizations Vaccine Route Administration Date Status Comme nts Influenza (whole), CPT 38009 Inactive Unknown 03/07/2017 Administered Influenza (whole), CPT 07389 Inactive Unknown 04/11/2018 Administered Influenza, high dose seasonal Unknown 11/07/2019 Refuse d Influenza, seasonal, injecta ble, preservative free, 3 yrs and above Unknown 07/20/2019 Administered Pneumococcal polysaccharide PPV23 Unknown 07/20/2018 Ad ministered Pneumovax 23 Unknown 03/07/2017 Administered Social History Tobacco Use: Social History Observation Description Date Details (start date - stop date) Former Smoker NA - NA xTobacco Use/Smoking Question Answer Notes Are you a [...] way Not at all Total Score 0 Problems Problem Type SNOMED Code ICD Code Onset Dates Problem Status W/U Status Risk Notes Problem 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 (04027513) Follicular lymphoma grade III, unspecified, lymph nodes of multiple sites (C82.28) Active confirmed Problem Chronic obstructive pulmonary disease (94081987) Chronic obstructive pulmonary disease, unspecified (J44.9) Active confirmed Problem Non-Hodgkin lymphoma (961240228) Lymphoma, non-Hodgkin's (C85.90) Active confirmed Problem 35975137 Chronic cough (R05) Active confirmed Problem 443258905 Peripheral vascular disease (I73.9) Active confirmed Problem 097716863 Abnormal PFT (R94.2) Active confirmed Problem History of follicular lymphoma (Z85.72) Active confirmed Problem 806064396 Follicular lymphoma of spleen, 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 confirmed Problem 677778783 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) Active confirmed Plan Of Treatment Pending Test Test Name Order Date PETCT 10/30/2019 Comprehensive Metabolic Panel 20620 06/2019 CBC Reflex Man Diff 40276, 89049 020 Port Flush 11/18/2020 Future Test Test Name Order Date Port Flush 10/26/2019 Comprehensive Metabolic Panel 71218 09/0 08/2019 CBC Reflex Man Diff 54524, 28429 020 Comprehensive Metabolic Panel 00499 11/04 CBC Reflex Man Diff 03039, 10686 021 Insurance Providers Payer Name Payer Address Payer Phone Subscriber Number Group Number Insured Name Patient Relationship to Insured Coverage Start Date Coverage End Date [employer] [address] [place] [address] [id number] FraserIrwin Self - patient is the insured Medical (General) History Medical History History ICD Code Problem:Allergic rhinitis [...]
[2023-12-14 14:35] LABS: Basophils # 0.1 10^3/uL (0.0-0.1); Basophils % 0.6 %; Eosinophils # 0.4 10^3/uL (0.0-0.8); Eosinophils % 5.1 %; Hematocrit 36.5 % (37-53); Lymphocytes # 2.4 10^3/uL (0.8-4.8); Lymphocytes % 30.8 %; Mean Corpuscular HGB Conc 32.3 g/dL (30-55); Mean Corpuscular Volume 92.9 fl (82-101); Mean Platelet Volume 9.3 fL (7.4-10.4); Monocytes # 0.6 10^3/uL (0.2-0.9); Monocytes % 8.1 %; Neutrophils # 4.36 10^3/uL (1.8-7.7); Neutrophils % 55.1 %; Nucleated Red Blood Cells % 0 %; Platelet Count 216 10^3/cmm (157-399); Red Blood Count 3.93 10^6/uL (3.85-5.65); Red Cell Distribution Width 15.4 % (12.1-15.1); White Blood Count 7.91 10^3/uL (3.29-11.43)
[2023-12-14 14:50] LABS: Alanine Aminotransferase 23 U/L (0-41); Albumin Level 3.8 g/dL (3.5-5.2); Alkaline Phosphatase 123 U/L (40-130); Aspartate Amino Transferase 25 U/L (0-40); Blood Urea Nitrogen 14 mg/dL (8-23); Calcium 8.9 mg/dL (8.5-10.5); Carbon Dioxide 26 mmol/L (22-29); Chloride 102 mmol/L (98-107); Glucose 126 mg/dL (65-115); Lactate Dehydrogenase 217 U/L (135-225); Osmolality Calculated 290 mOsm/kg (285-295); Sodium 139 mmol/L (136-145); Total Bilirubin 0.2 mg/dL (0.15-1.2); Total Protein 6.8 g/dL (6.6-8.7)
== END 2024-01-04 23:59 | disposition home or self-care (01) ==
LOC: ONCMED 14:11
PROVIDERS: Nurse Practitioner Family; PCP Emergency Medicine Emergency Medical Services; Visit Provider Internal Medicine
DX: C82.90 Follicular lymphoma, unspecified, unspecified site (principal)
CPT/HCPCS: 36591; 80053; 83615; 85025

== ENCOUNTER 2024-01-24 10:20 | Oncology outpatient (recurring) (ONCR) | payer OTHER, SELFPAY ==
--- OUTSIDE RECORDS SUMMARY | 2024-01-24 10:22 | XMS_ITS ---
Author Name Unknown Organization [facility] Address [address] [place] [address] Care Team Providers Care General Clerk Name Role Phone Ban Tavares APRN Primary Care Provider Unavail Neftali Zamora Unavailable [phone] [place] Unavailable Unavailable REASON FOR VISIT Peripheral vascular disease per Chaitanya MACHINE FELLER- 03/28/23 Encounters Encounter Location Date Provider Diagnosis [facility] [address] [place] [address], [place] [address] 06/09/2023 Neftali Berman Plan Of Treatment No Information Progress Notes * Irwin FRASER SDOB:[birth year] (78 yo M)Acc No.[id number]:06/09/2023 Progress Notes Patient:?Irwin FRASER Provider:?Neftali Berman MD :1945???Age:78 Y???Sex:Male Abel e:06/09/2023 Address:[address] [place], [id number] Pcp:Ban Tavares APRN Subjective: * Chief Complaints: * ???1. Peripheral vascular di sease per Chaitanya MACHINE FELLER- 03/28/23 . * Medical History:? Objective: * Vitals:? Assessment: Plan: * Treatment: Care Plan: * Problems:? * Billing Information: * Visit Code:? * Procedure Codes:? * Electronic signature of Nargis Berman MD on 01/24/2024 at 10:22 AM CDT Sign off status: Pending * Provider:?Neftali Berman MD Date:?06/09 Generated for James pruett/Sulema/Iram on:?01/24/2024 10:22 AM CDT
--- OUTSIDE RECORDS SUMMARY | 2024-01-24 10:23 | XMS_ITS | Patient Health Record ---
Author Name Unknown Organization [facility] Address [address] [facility] [address] Care Team Providers Care Solvent Recoverer Name Role Phone Ban Tavares APRN Primary Care Provider Unavail able Neftali Berman Unavailable [phone] [place], [place] Unavailable Unavailable Allergies No Known Allergies Reason For Referral Reason Peripheral vascular disease Diagnosis 1 Peripheral vascular disease (I73.9) Referring Provider First Name Ban Referring Provider Last Name Chaitanya Referring Provider Speciality Nurse Prac titioner [facility] Referred Provider Neftali Berman Referred Address [address],[place],[address],[place] Referred Provider Specialty Cardiology Referral Priority Routine [...] Date Status Comme nts Influenza (whole), CPT 98161 Inactive Unknown 03/07/2017 Administered Influenza (whole), CPT 63858 Inactive Unknown 04/11/2018 Administered Influenza, high dose [...] lymphoma of lymph nodes of multiple sites (43638923) Follicular lymphoma grade III, unspecified, lymph nodes of multiple sites (C82.28) Active confirmed Problem Chronic obstructive pulmonary disease (01690965) Chronic obstructive pulmonary disease, unspecified (J44.9) Active confirmed Problem Non-Hodgkin lymphoma (957431613) Lymphoma, non-Hodgkin's (C85.90) Active confirmed Problem 13452996 Chronic cough (R05) Active confirmed Problem 856609190 Peripheral vascular disease (I73.9) Active confirmed Problem 215144274 Abnormal PFT (R94.2) Active confirmed Problem History of follicular lymphoma (Z85.72) Active confirmed Problem 835040786 Follicular lymphoma of spleen, 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 confirmed Problem 796719127 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) Active confirmed Plan Of Treatment Pending Test Test Name Order Date PETCT 10/30/2019 Comprehensive Metabolic Panel 70773 06/2019 CBC Reflex Man Diff 05746, 56453 020 Port Flush 11/18/2020 Future Test Test Name Order Date Port Flush 10/26/2019 Comprehensive Metabolic Panel 10388 09/0 08/2019 CBC Reflex Man Diff 05348, 39727 020 Comprehensive Metabolic Panel 33009 11/04 CBC Reflex Man Diff 38698, 91517 021 Insurance Providers Payer Name Payer Address Payer Phone Subscriber Number Group Number Insured Name Patient Relationship to Insured Coverage Start Date Coverage End Date [employer] [address] [place] [address] [phone] [id number] FraserIrwin Self - patient is the insured [...]
== END 2024-02-04 23:59 | disposition home or self-care (01) ==
LOC: ONCMED 10:20
PROVIDERS: PCP Emergency Medicine Emergency Medical Services; Visit Provider Internal Medicine
DX: Z45.1 Encounter for adjustment and management of infusion pump (principal)
CPT/HCPCS: 96523

== ENCOUNTER 2024-02-21 13:18 | Oncology outpatient (recurring) (ONCR) | payer OTHER, SELFPAY ==
[2024-02-21 14:09] LABS: Basophils % 0.5 %; Eosinophils # 0.5 10^3/uL (0.0-0.8); Eosinophils % 5.7 %; Hematocrit 34.7 % (37-53); Lymphocytes # 1.9 10^3/uL (0.8-4.8); Lymphocytes % 23.2 %; Mean Corpuscular HGB Conc 32.9 g/dL (30-55); Mean Corpuscular Hemoglobin 30.6 pg (27-33); Mean Corpuscular Volume 93.3 fl (82-101); Mean Platelet Volume 9.2 fL (7.4-10.4); Monocytes # 0.7 10^3/uL (0.2-0.9); Monocytes % 8.5 %; Neutrophils # 5.12 10^3/uL (1.8-7.7); Neutrophils % 61.6 %; Nucleated Red Blood Cells % 0 %; Platelet Count 215 10^3/cmm (157-399); Red Blood Count 3.72 10^6/uL (3.85-5.65); Red Cell Distribution Width 15.3 % (12.1-15.1); White Blood Count 8.31 10^3/uL (3.29-11.43)
[2024-02-21 14:34] LABS: Alanine Aminotransferase 22 U/L (0-41); Albumin Level 3.9 g/dL (3.5-5.2); Alkaline Phosphatase 110 U/L (40-130); Anion Gap 13.1 (5-19); Aspartate Amino Transferase 21 U/L (0-40); Blood Urea Nitrogen 24 mg/dL (8-23); Calcium 8.9 mg/dL (8.5-10.5); Carbon Dioxide 27 mmol/L (22-29); Chloride 103 mmol/L (98-107); Globulin 2.4 g/dL (1.3-4.6); Glucose 108 mg/dL (65-115); Lactate Dehydrogenase 321 U/L (135-225); Osmolality Calculated 293 mOsm/kg (285-295); Potassium 4.1 mmol/L (3.5-5.1); Sodium 139 mmol/L (136-145); Total Bilirubin 0.2 mg/dL (0.15-1.2); Total Protein 6.3 g/dL (6.6-8.7)
== END 2024-03-05 23:59 | disposition home or self-care (01) ==
PROVIDERS: Nurse Practitioner Family; PCP Emergency Medicine Emergency Medical Services; Visit Provider Internal Medicine Medical Oncology
DX: C82.90 Follicular lymphoma, unspecified, unspecified site; D64.9 Anemia, unspecified
CPT/HCPCS: 36591; 80053; 83615; 85025; 99214

== ENCOUNTER 2024-03-21 14:03 | Oncology outpatient (recurring) (ONCR) | payer OTHER, SELFPAY ==
--- OUTSIDE RECORDS SUMMARY | 2024-03-21 14:07 | XMS_ITS ---
Author Name Unknown Organization [facility] Address [address] [place] [address] Care Team Providers Care Fiber Optic Technician Name Role Phone Ban Tavares APRN Primary Care Provider Unavail Neftali Zamora Unavailable [phone] [place] Unavailable Unavailable REASON FOR VISIT Peripheral vascular disease per Chaitanya BATCH MIXING TRUCK DRIVER- 03/28/23 Encounters Encounter Location Date Provider Diagnosis [facility] [address] [place] [address], [place] [address] 06/09/2023 Neftali Berman Plan Of Treatment No Information Progress Notes * Irwin FRASER SDOB:[birth year] (79 yo M)Acc No.[id number]:06/09/2023 Progress Notes Patient:?Irwin FRASER Provider:?Neftali Berman MD :1945???Age:78 Y???Sex:Male Abel e:06/09/2023 Address:[address], [place], [id number] Pcp:Ban Tavares APRN Subjective: * Chief Complaints: * ???1. Peripheral vascular di sease per Chaitanya BATCH MIXING TRUCK DRIVER- 03/28/23 . * Medical History:? Objective: * Vitals:? Assessment: Plan: * Treatment: Care Plan: * Problems:? * Billing Information: * Visit Code:? * Procedure Codes:? * Electronic signature of Nargis Berman MD on 03/21/2024 at 02:06 PM CDT Sign off status: Pending * Provider:?Neftali Berman MD Date:?06/09 Generated for James pruett/Sulema/Iram on:?03/21/2024 02:06 PM CDT
--- OUTSIDE RECORDS SUMMARY | 2024-03-21 14:07 | XMS_ITS | Patient Health Record ---
Author Name Unknown Organization [facility] Address [address] [place] [address] Care Team Providers Care Pick And Shovel Worker Name Role Phone Ban Tavares APRN Primary Care Provider Unavail able Neftali Berman Unavailable [phone] [place] [employer] Unavailable Unavailable Allergies No Known Allergies Reason For Referral No Information Medications Medication SIG (Take, Route, Frequency, Duration) [...] Date Status Comme nts Influenza (whole), CPT 03169 Inactive Unknown 03/07/2017 Administered Influenza (whole), CPT 97513 Inactive Unknown 04/11/2018 Administered Influenza, high dose [...] lymphoma of lymph nodes of multiple sites (12134533) Follicular lymphoma grade III, unspecified, lymph nodes of multiple sites (C82.28) Active confirmed Problem Chronic obstructive pulmonary disease (21321324) Chronic obstructive pulmonary disease, unspecified (J44.9) Active confirmed Problem Non-Hodgkin lymphoma (808321265) Lymphoma, non-Hodgkin's (C85.90) Active confirmed Problem 06270408 Chronic cough (R05) Active confirmed Problem 333619175 Peripheral vascular disease (I73.9) Active confirmed Problem 362403588 Abnormal PFT (R94.2) Active confirmed Problem History of follicular lymphoma (Z85.72) Active confirmed Problem 294690630 Follicular lymphoma of spleen, 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 confirmed Problem 587496558 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) Active confirmed Plan Of Treatment Pending Test Test Name Order Date PETCT 10/30/2019 Comprehensive Metabolic Panel 88473 06/2019 CBC Reflex Man Diff 46169, 97246 020 Port Flush 11/18/2020 Future Test Test Name Order Date Port Flush 10/26/2019 Comprehensive Metabolic Panel 06709 08/2019 CBC Reflex Man Diff 62623, 99609 020 Comprehensive Metabolic Panel 60751 11/04 CBC Reflex Man Diff 76878, 44780 021 Insurance Providers Payer Name Payer Address Payer Phone Subscriber Number Group Number Insured Name Patient Relationship to Insured Coverage Start Date Coverage End Date [employer] [address] [place] [address] [id number] Irwin Fraser Self - patient is the insured Medical [...]
[2024-03-21 14:57] LABS: Lactate Dehydrogenase 281 U/L (135-225)
== END 2024-04-05 23:59 | disposition home or self-care (01) ==
PROVIDERS: Nurse Practitioner Family; PCP Emergency Medicine Emergency Medical Services; Visit Provider Internal Medicine Medical Oncology
DX: C82.90 Follicular lymphoma, unspecified, unspecified site (principal)
CPT/HCPCS: 36591; 83615

== ENCOUNTER 2024-04-23 10:52 | Oncology outpatient (recurring) (ONCR) | payer OTHER, SELFPAY ==
--- OUTSIDE RECORDS SUMMARY | 2024-04-23 10:54 | XMS_ITS ---
Author Name Unknown Organization [facility] Address [address] [place] [address] Care Team Providers Care Electrical Power Station Technician Name Role Phone Ban Tavares APRN Primary Care Provider Unavail able Neftali Berman Unavailable [phone] [place], [place] Unavailable Unavailable Migration, Provider Unavailable Unavailable REASON FOR VISIT EMR-[facility] Encounters Encounter Location Date Provider Diagnosis Migrated_Facility 0 0 03/31/2024 Provider Migration Plan Of Treatment No Information Progress Notes * Irwin KERR SDOB:[birth year] (79 yo M)Acc No.[id number]:03/31/2024 Patient:?Irwin KERR :1945???Age:79 Y???Sex:Male Address:[address], [address], [place] [address] Subjective: * Chief Complaints: * ???EMR-Reinier * Medical History:? * Surgical History:? * Hospitalization/Major Diagno stic Procedure:? * Medications:? Objective: * Vitals:? * Physical Examination:? Assessment: Plan: * Treatment: * Procedure Codes:? * * Date:?
--- OUTSIDE RECORDS SUMMARY | 2024-04-23 10:54 | XMS_ITS ---
Author Name Unknown Organization [facility] Address [address] [place] [address] Care Team Providers Care Private Branch Exchange Operator Name Role Phone Ban Tavares APRN Primary Care Provider Unavail able Neftali Berman Unavailable [phone] [place], [place] Unavailable Unavailable Migration, Provider Unavailable Unavailable REASON FOR VISIT EMR-[facility] Encounters Encounter Location Date Provider Diagnosis Migrated_Facility 0 0 04/01/2024 Provider Migration Plan Of Treatment No Information Progress Notes * Irwin KERR SDOB:[birth year] (79 yo M)Acc No.[id number]:04/01/2024 Patient:?Irwin KERR :1945???Age:79 Y???Sex:Male Address:[address], [place] [address] Subjective: * Chief Complaints: * ???EMR-Reinier * Medical History:? * Surgical History:? * Hospitalization/Major Diagno stic Procedure:? * Medications:? Objective: * Vitals:? * Physical Examination:? Assessment: Plan: * Treatment: * Procedure Codes:? * * Date:?
--- OUTSIDE RECORDS SUMMARY | 2024-04-23 10:55 | XMS_ITS ---
Author Name Unknown Organization [facility] Address [address] [place] [address] Care Team Providers Care Optical Designer Name Role Phone Ban Tavares APRN Primary Care Provider Unavail Neftali Zamora Unavailable [phone] [place] Unavailable Unavailable REASON FOR VISIT Peripheral vascular disease per Chaitanya ONCOLOGY RN- 03/28/23 Encounters Encounter Location Date Provider Diagnosis [facility] [address] [place] [address], [place] [address] 06/09/2023 Neftali Berman Plan Of Treatment No Information Progress Notes * Irwin FRASER SDOB:[birth year] (79 yo M)Acc No.[id number]:06/09/2023 Progress Notes Patient:?Irwin FRASER Provider:?Neftali Berman MD :1945???Age:78 Y???Sex:Male Abel e:06/09/2023 Address:[address], [place], [id number] Pcp:Ban Tavares APRN Subjective: * Chief Complaints: * ???1. Peripheral vascular di sease per Chaitanya ONCOLOGY RN- 03/28/23 . * Medical History:? Objective: * Vitals:? Assessment: Plan: * Treatment: Forms: Care Plan: * Problems:? * Billing Information: * Visit Code:? * Procedure Codes:? * Electronic signature of Nargis Berman MD on 04/23/2024 at 10:55 AM NANOFABRICATION SPECIALIST Sign off status: Pending * Provider:?Neftali Berman MD Date:?06/09 Generated for James pruett/Sulema/Iram on:?04/23/2024 10:55 AM NANOFABRICATION SPECIALIST
--- OUTSIDE RECORDS SUMMARY | 2024-04-23 10:55 | XMS_ITS | Patient Health Record ---
Author Name Unknown Organization [facility] Address [address] [place] [address] Care Team Providers Care Manufacturing Scheduler Name Role Phone Ban Tavares APRN Primary Care Provider Unavail able Neftali Berman Unavailable [phone] [place], [place] Unavailable Unavailable Migration, Provider Unavailable Unavailable Allergies No Known Allergies Reason [...] Date Status Comme nts Influenza (whole), CPT 16658 Inactive Unknown 03/07/2017 Administered Influenza (whole), CPT 95894 Inactive Unknown 04/11/2018 Administered Influenza, high dose [...] lymphoma of lymph nodes of multiple sites (51141230) Follicular lymphoma grade III, unspecified, lymph nodes of multiple sites (C82.28) Active confirmed Problem Chronic obstructive pulmonary disease (16937597) Chronic obstructive pulmonary disease, unspecified (J44.9) Active confirmed Problem Non-Hodgkin lymphoma (791259277) Lymphoma, non-Hodgkin's (C85.90) Active confirmed Problem 81315301 Chronic cough (R05) Active confirmed Problem 521220818 Peripheral vascular disease (I73.9) Active confirmed Problem 728590338 Abnormal PFT (R94.2) Active confirmed Problem History of follicular lymphoma (Z85.72) Active confirmed Problem 646693711 Follicular lymphoma of spleen, 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 confirmed Problem 353774198 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) Active confirmed Encounters Encounter Location Date Provider Diagnosis Migrated_Facility 0 0 03/31/2024 Provider Migration Migrated_Facility 0 0 04/01/2024 Provider Migration Plan Of Treatment Pending Test Test Name Order Date PETCT 10/30/2019 Comprehensive Metabolic Panel 22076 0906/2019 CBC Reflex Man Diff 51817, 64044 020 Port Flush 11/18/2020 Future Test Test Name Order Date Port Flush 10/26/2019 Comprehensive Metabolic Panel 98264 090 08/2019 CBC Reflex Man Diff 74056, 38265 020 Comprehensive Metabolic Panel 42230 11/04 CBC Reflex Man Diff 03700, 99320 021 Insurance Providers Payer Name Payer Address Payer Phone Subscriber Number Group Number Insured Name Patient Relationship to Insured Coverage Start Date Coverage End Date [employer] [address] [place] [phone] [id number] Irwin Fraser Self - patient is the [...]
== END 2024-05-05 23:59 | disposition home or self-care (01) ==
LOC: ONCMED 10:53
PROVIDERS: PCP Emergency Medicine Emergency Medical Services; Visit Provider Internal Medicine Medical Oncology
DX: Z45.2 Encounter for adjustment and management of vascular access device (principal)
CPT/HCPCS: 96523

== ENCOUNTER 2024-06-05 10:25 | Oncology outpatient (recurring) (ONCR) | payer OTHER, SELFPAY ==
[2024-06-05 10:48] LABS: Basophils % 0.4 %; Eosinophils # 0.3 10^3/uL (0.0-0.8); Eosinophils % 3.7 %; Hematocrit 37.1 % (37-53); Lymphocytes # 2.7 10^3/uL (0.8-4.8); Lymphocytes % 30.1 %; Mean Corpuscular HGB Conc 32.3 g/dL (30-55); Mean Corpuscular Hemoglobin 30.2 pg (27-33); Mean Corpuscular Volume 93.2 fl (82-101); Mean Platelet Volume 9.1 fL (7.4-10.4); Monocytes # 0.8 10^3/uL (0.2-0.9); Monocytes % 8.7 %; Neutrophils # 5.16 10^3/uL (1.8-7.7); Neutrophils % 56.7 %; Nucleated Red Blood Cells % 0 %; Platelet Count 211 10^3/cmm (157-399); Red Blood Count 3.98 10^6/uL (3.85-5.65); Red Cell Distribution Width 15.5 % (12.1-15.1); White Blood Count 9.11 10^3/uL (3.29-11.43)
[2024-06-05 11:01] LABS: Alanine Aminotransferase 26 U/L (0-41); Albumin Level 3.9 g/dL (3.5-5.2); Alkaline Phosphatase 123 U/L (40-130); Anion Gap 15.4 (5-19); Aspartate Amino Transferase 26 U/L (0-40); Blood Urea Nitrogen 18 mg/dL (8-23); Carbon Dioxide 26 mmol/L (22-29); Chloride 102 mmol/L (98-107); Globulin 2.6 g/dL (1.3-4.6); Glucose 95 mg/dL (65-115); Lactate Dehydrogenase 258 U/L (135-225); Osmolality Calculated 290 mOsm/kg (285-295); Potassium 4.4 mmol/L (3.5-5.1); Sodium 139 mmol/L (136-145); Total Bilirubin 0.2 mg/dL (0.15-1.2); Total Protein 6.5 g/dL (6.6-8.7)
== END 2024-06-05 23:59 | disposition home or self-care (01) ==
PROVIDERS: Nurse Practitioner Family; PCP Emergency Medicine Emergency Medical Services; Visit Provider Internal Medicine Medical Oncology
DX: C82.90 Follicular lymphoma, unspecified, unspecified site (principal)
CPT/HCPCS: 36591; 80053; 83615; 85025; 99214

== ENCOUNTER 2024-09-04 12:11 | Oncology outpatient (recurring) (ONCR) | payer OTHER, SELFPAY ==
[2024-09-04 12:33] LABS: Basophils # 0.1 10^3/uL (0.0-0.1); Basophils % 0.5 %; Eosinophils # 0.3 10^3/uL (0.0-0.8); Eosinophils % 3.2 %; Lymphocytes # 2.3 10^3/uL (0.8-4.8); Mean Corpuscular HGB Conc 33.1 g/dL (30-55); Mean Corpuscular Hemoglobin 30.9 pg (27-33); Mean Corpuscular Volume 93.3 fl (82-101); Monocytes # 0.9 10^3/uL (0.2-0.9); Monocytes % 9.4 %; Neutrophils # 5.69 10^3/uL (1.8-7.7); Neutrophils % 61.4 %; Nucleated Red Blood Cells % 0 %; Platelet Count 213 10^3/cmm (157-399); Red Blood Count 3.75 10^6/uL (3.85-5.65); Red Cell Distribution Width 15.7 % (12.1-15.1); White Blood Count 9.28 10^3/uL (3.29-11.43)
[2024-09-04 12:46] LABS: Alanine Aminotransferase 25 U/L (0-41); Alkaline Phosphatase 98 U/L (40-130); Anion Gap 12.1 (5-19); Aspartate Amino Transferase 24 U/L (0-40); Blood Urea Nitrogen 19 mg/dL (8-23); Calcium 8.9 mg/dL (8.5-10.5); Carbon Dioxide 27 mmol/L (22-29); Chloride 102 mmol/L (98-107); Globulin 2.8 g/dL (1.3-4.6); Glucose 104 mg/dL (65-115); Lactate Dehydrogenase 249 U/L (135-225); Osmolality Calculated 287 mOsm/kg (285-295); Potassium 4.1 mmol/L (3.5-5.1); Sodium 137 mmol/L (136-145); Total Bilirubin 0.2 mg/dL (0.15-1.2); Total Protein 6.8 g/dL (6.6-8.7)
== END 2024-10-03 23:59 | disposition home or self-care (01) ==
PROVIDERS: PCP Emergency Medicine Emergency Medical Services; Visit Provider Internal Medicine Medical Oncology
DX: Z08 Encounter for follow-up examination after completed treatment for malignant neoplasm (principal); Z85.72 Personal history of non-Hodgkin lymphomas; Z72.0 Tobacco use
CPT/HCPCS: 36591; 80053; 83615; 85025; 99214

== ENCOUNTER → 2024-09-12 14:25 | Outpatient (BNVA) | payer OTHER, SELFPAY | PROVIDERS: PCP Emergency Medicine Emergency Medical Services; Visit Provider Internal Medicine Cardiovascular Disease | DX: M79.89 Other specified soft tissue disorders (principal); I10 Essential (primary) hypertension; I73.9 Peripheral vascular disease, unspecified; J44.1 Chronic obstructive pulmonary disease with (acute) exacerbation; Z86.718 Personal history of other venous thrombosis and embolism | CPT/HCPCS: 36415; 80048; 99214 ==

== ENCOUNTER 2024-10-03 13:31 | Outpatient (CLI) | payer OTHER, SELFPAY ==
--- NOTE | 2024-10-03 13:38 | USCV_ITS ---
Irwin Fraser Age: 79 Gender: M : 1945 Exam Date: 10/03/2024 13:52 Ordering Phys: Janett Nevarez APRN Technologist: SNEHAL Exam Location: [facility] [place] Indication: Rigth lower exremity swelling HISTORY: Right lower extremity, PT has history of DVT PROCEDURES: Venous duplex imaging was performed in only the right lower extremity. The following venous structures were evaluated: common femoral vein, profunda vein, proximal portion of the greater saphenous vein, superficial femoral vein, and the popliteal vein. In addition, the posterior tibial and peroneal trunk were evaluated. FINDINGS: Normal 2-D Doppler and augmentation and compressibility throughout the lower extremity venous structures. Additional imaging through the proximal calf veins also reveals no thrombus. Limited evaluation of the greater saphenous vein is patent with no thrombus. CONCLUSIONS No DVT right lower extremity. Dr. Tootie Freeman DO (Electronically Signed) Final Date: 03 October 2024 15:09 S
== END 2024-10-03 13:32 | disposition home or self-care (01) ==
PROVIDERS: PCP Emergency Medicine Emergency Medical Services; Visit Provider Nurse Practitioner Family
DX: Z01.89 Encounter for other specified special examinations (principal)
CPT/HCPCS: 93971

== ENCOUNTER 2024-10-04 09:20 | Outpatient (CLI) | payer OTHER, SELFPAY ==
--- NOTE | 2024-10-04 09:23 | USCV_ITS ---
Irwin Fraser Age: 79 Gender: M : 1945 Exam Date: 10/04/2024 09:50 Ordering Phys: Janett Nevarez APRN Technologist: Exam Location: [facility] [place] Indication: Murmur BP: 127 / 80 HR: 87 Rhythm: Sinus Technical Quality: Adequate MEASUREMENTS (Male / Female) Normal Values 2D ECHO LV Diastolic Diameter PLAX 2.1 cm 4.2 - 5.9 / 3.9 - 5.3 cm IVS Diastolic Thickness 1.3 cm 0.6 - 1.0 / 0.6 - 0.9 cm IVS Systolic Thickness 1.3 cm LVPW Diastolic Thickness 1.2 cm 0.6 - 1.0 / 0.6 - 0.9 cm LVPW Systolic Thickness 1.3 cm LVOT Diameter 1.7 cm LV Ejection Fraction 2D Teich 62.9 % LV Ejection Fraction MOD 4C 58.7 % LV Ejection Fraction MOD 2C 68.2 % LV Ejection Fraction 2C AL 69.6 % LA Diameter 3.0 cm RA Systolic Volume 4C AL 47.7 ml RA Systolic Volume 4C MOD 42.5 ml LA Sys Volume AL 34.0 cm cubed LA Sys Volume Index AL 17.6 cm cubed/m squared M-MODE LA Ao Ratio MM 1.0 AV Cusp Separation MM 1.9 cm DOPPLER AV Peak Velocity 130.0 cm/s LVOT Peak Velocity 99.0 cm/s AV Area Cont Eq vti 1.7 cm squared AV Area Cont Eq pk 1.7 cm squared MV Peak Velocity 124.0 cm/s MV Area PHT 3.2 cm squared Mitral E to A Ratio 0.7 TR Peak Velocity 210.0 cm/s TR Peak Gradient 17.6 mmHg PV Peak Velocity 140.0 cm/s FINDINGS Left Ventricle Normal left ventricular size, systolic function and wall thickness, with no regional wall motion abnormalities. Left ventricular ejection fraction is estimated at 60 %. Grade I/IV diastolic dysfunction (abnormal relaxation filling pattern), normal to mildly elevated filling pressures. Right Ventricle The right ventricle is normal in size and function. Right Atrium The right atrium is normal in size. Left Atrium The left atrium is normal in size. Mitral Valve Structurally normal mitral valve without significant stenosis or prolapse. There is no mitral regurgitation. Aortic Valve Moderate aortic valve calcification. No aortic valve stenosis. Trace aortic valve regurgitation. Tricuspid Valve Structurally normal tricuspid valve without significant stenosis or regurgitation. Pulmonary artery systolic pressure is normal. Pulmonic Valve Structurally normal pulmonic valve without significant stenosis. There is no pulmonic regurgitation. Pericardium Normal pericardium without effusion. Aorta Normal ascending aorta dimension. IVC The inferior vena cava appears normal. CONCLUSIONS Normal left ventricular size, systolic function and wall thickness, with no regional wall motion abnormalities. Left ventricular ejection fraction is estimated at 60 %. Grade I/IV diastolic dysfunction (abnormal relaxation filling pattern), normal to mildly elevated filling pressures. No significant valve abnormalities. There is no pericardial effusion. Right atrial pressure is around 5 mm of mercury. Lauren Franklin MD (Electronically Signed) Final Date: 05 Oct 2024 12:54 S
== END 2024-10-04 09:21 | disposition home or self-care (01) ==
LOC: RAD 09:21
PROVIDERS: PCP Nurse Practitioner Family; Visit Provider Nurse Practitioner Family
DX: R01.1 Cardiac murmur, unspecified (principal); R93.1 Abnormal findings on diagnostic imaging of heart and coronary circulation; I35.8 Other nonrheumatic aortic valve disorders
CPT/HCPCS: 93306

== ENCOUNTER 2024-10-10 11:01 | Oncology outpatient (recurring) (ONCR) | payer OTHER, SELFPAY ==
--- NOTE | 2024-10-10 09:30 | USR_ITS ---
PROCEDURE INFORMATION: Exam: US Duplex Lower Extremity Veins, Bilateral, Venous Insufficiency Exam date and time: 10/10/2024 10:02 AM Age: 79 years old Clinical indication: Swelling (edema) of limb; Lower extremity, bilateral; Additional info: Leg swelling TECHNIQUE: Imaging protocol: Real-time duplex ultrasound of the extremities with 2-D carrera scale, color Doppler flow and spectral waveform analysis including responses to compression and other maneuvers (when performed) with image documentation. Complete exam focused on the bilateral lower extremity veins for venous insufficiency. COMPARISON: [place] [id number] 10/03/2024 1:52 PM FINDINGS: Right deep veins: Unremarkable. The common femoral, femoral, proximal profunda femoral and popliteal veins are patent without thrombus. Normal Doppler waveforms. Normal compressibility and/or augmentation response. Right superficial veins: Saphenofemoral junction and greater saphenous veins are patent without thrombus. Left deep veins: Unremarkable. The common femoral, femoral, proximal profunda femoral and popliteal veins are patent without thrombus. Normal Doppler waveforms. Normal compressibility and/or augmentation response. Left superficial veins: Saphenofemoral junction and greater saphenous veins are patent without thrombus. Soft tissues: Unremarkable. Reflux into the right common femoral vein equals 0.91 seconds. Reflux into the left SFJ equals 1.01 seconds. US/[place] [id number] IMPRESSION: No evidence of DVT.
== END 2024-11-03 23:59 | disposition home or self-care (01) ==
PROVIDERS: PCP Nurse Practitioner Family; Visit Provider Internal Medicine
DX: Z53.9 Procedure and treatment not carried out, unspecified reason; M79.89 Other specified soft tissue disorders; Z95.828 Presence of other vascular implants and grafts
CPT/HCPCS: 36591; 93970; 96523

== ENCOUNTER 2024-12-06 11:55 | Oncology outpatient (recurring) (ONCR) | payer OTHER, SELFPAY | END 2025-01-03 23:59 | disposition home or self-care (01) | PROVIDERS: PCP Nurse Practitioner Family; Visit Provider Internal Medicine | DX: Z45.2 Encounter for adjustment and management of vascular access device (principal); Z95.828 Presence of other vascular implants and grafts | CPT/HCPCS: 96523 ==

== ENCOUNTER 2025-01-08 13:58 | Oncology outpatient (recurring) (ONCR) | payer OTHER, SELFPAY | END 2025-02-03 23:59 | disposition home or self-care (01) | PROVIDERS: PCP Nurse Practitioner Family; Visit Provider Internal Medicine | DX: Z45.2 Encounter for adjustment and management of vascular access device (principal); Z95.828 Presence of other vascular implants and grafts | CPT/HCPCS: 96523 ==

== ENCOUNTER → 2025-01-21 09:59 | Outpatient (BNVA) | payer OTHER, SELFPAY | PROVIDERS: PCP Nurse Practitioner Family; Visit Provider Specialist | DX: M25.522 Pain in left elbow (principal); S59.902A Unspecified injury of left elbow, initial encounter; X58.XXXA Exposure to other specified factors, initial encounter | CPT/HCPCS: 73080 ==

== ENCOUNTER 2025-01-21 11:49 | Outpatient (CLI) | payer OTHER, SELFPAY | END 2025-01-21 11:50 | disposition home or self-care (01) | LOC: SPT 11:50 | PROVIDERS: PCP Nurse Practitioner Family; Visit Provider Specialist | DX: Z46.89 Encounter for fitting and adjustment of other specified devices (principal); M25.522 Pain in left elbow | CPT/HCPCS: L3761 ==

== ENCOUNTER 2025-02-05 14:14 | Oncology outpatient (recurring) (ONCR) | payer OTHER, SELFPAY | END 2025-03-05 23:59 | disposition home or self-care (01) | PROVIDERS: PCP Nurse Practitioner Family; Visit Provider Internal Medicine | DX: Z45.2 Encounter for adjustment and management of vascular access device (principal); Z95.828 Presence of other vascular implants and grafts | CPT/HCPCS: 96523 ==

== ENCOUNTER → 2025-03-07 14:08 | Outpatient (BNVA) | payer OTHER, SELFPAY | PROVIDERS: PCP Nurse Practitioner Family; Visit Provider Internal Medicine Cardiovascular Disease | DX: I87.2 Venous insufficiency (chronic) (peripheral) (principal); I10 Essential (primary) hypertension; J44.9 Chronic obstructive pulmonary disease, unspecified; F17.200 Nicotine dependence, unspecified, uncomplicated | CPT/HCPCS: 99214 ==

== ENCOUNTER 2025-03-12 13:49 | Oncology outpatient (recurring) (ONCR) | payer OTHER, SELFPAY | END 2025-04-05 23:59 | disposition home or self-care (01) | LOC: ONCMED 13:49 | PROVIDERS: PCP Nurse Practitioner Family; Visit Provider Internal Medicine | DX: Z45.2 Encounter for adjustment and management of vascular access device (principal); Z95.828 Presence of other vascular implants and grafts | CPT/HCPCS: 96523 ==

== ENCOUNTER 2025-04-23 13:25 | Oncology outpatient (recurring) (ONCR) | payer OTHER, SELFPAY ==
[2025-04-23 13:35] LABS: Hematocrit 35.0 % (37-53); Hemoglobin 11.50 g/dL (11.27-16.99); Mean Corpuscular HGB Conc 32.9 g/dL (30-55); Mean Corpuscular Hemoglobin 30.5 pg (27-33); Mean Corpuscular Volume 92.8 fl (82-101); Nucleated Red Blood Cells % 0 %; Platelet Count 221 10^3/cmm (157-399); Red Blood Count 3.77 10^6/uL (3.85-5.65); White Blood Count 7.96 10^3/uL (3.29-11.43)
[2025-04-23 13:55] LABS: Alanine Aminotransferase 25 U/L (0-41); Albumin Level 3.9 g/dL (3.5-5.2); Alkaline Phosphatase 87 U/L (40-130); Anion Gap 9.1 (5-19); Aspartate Amino Transferase 27 U/L (0-40); Blood Urea Nitrogen 20 mg/dL (8-23); Calcium 9.0 mg/dL (8.5-10.5); Carbon Dioxide 31 mmol/L (22-29); Chloride 99 mmol/L (98-107); Ferritin 124 ng/mL (30-400); Globulin 2.9 g/dL (1.3-4.6); Glucose 112 mg/dL (65-115); Iron 85 ug/dL (59-158); Osmolality Calculated 283 mOsm/kg (285-295); Potassium 4.1 mmol/L (3.5-5.1); Sodium 135 mmol/L (136-145); Total Iron Binding Capacity 282 mcg/dl; Total Protein 6.8 g/dL (6.6-8.7); Unsaturated Iron Binding 197 ug/dL (112-347)
[2025-04-23 14:14] LABS: Vitamin B12 > 2000 pg/mL (232-1245)
== END 2025-05-05 23:59 | disposition home or self-care (01) ==
PROVIDERS: Internal Medicine Medical Oncology; PCP Nurse Practitioner Family; Visit Provider Internal Medicine
DX: Z53.9 Procedure and treatment not carried out, unspecified reason; C82.2 Follicular lymphoma grade III, unspecified; Z87.891 Personal history of nicotine dependence; Z92.21 Personal history of antineoplastic chemotherapy
CPT/HCPCS: 36591; 80053; 82607; 82728; 82746; 83540; 83550; 83615; 85025; 99214